=== PATIENT | female | born 1980 | race Caucasian/White ===

== ENCOUNTER 2016-04-27 06:10 | Inpatient (IN) | payer OTHER ==
[2016-04-27] VITALS (46 sets, daily range): BP systolic 79–141; BP diastolic 39–96; PULSE 63–116; RESP 16–18; TEMP 98–99.7; O2SAT 100
[2016-04-27] MEDS ORDERED: LACTATED RINGER'S 1000 ML INJ 1,000 ML IV PRN (06:54)
[2016-04-27] MEDS ORDERED: LACTATED RINGER'S 1000 ML INJ 1,000 ML IV SCH (06:54)
[2016-04-27] MEDS ORDERED: CITRIC ACID-SODIUM CITRATE LIQ 30 ML UDC PO SCH (07:00)
[2016-04-27] MEDS ORDERED: LIDOCAINE HCL 1% 50 ML VIAL I-DERMAL PRN (07:00)
[2016-04-27] MEDS ORDERED: LIDOCAINE HCL 1% 50 ML VIAL INFIL PRN (07:00)
[2016-04-27] MEDS ORDERED: OXYTOCIN 30 UNITS-500ML PREMIX 500 ML IV ONE (07:00)
[2016-04-27] MEDS ORDERED: SODIUM CHLORID 0.9% 500 ML INJ 500 ML OTHER PRN (07:00)
[2016-04-27] MEDS ORDERED: MINERAL OIL 10 ML VIAL TOPICAL PRN (07:00)
[2016-04-27] MEDS ORDERED: SODIUM CHLOR 0.9% 1000 ML INJ 1,000 ML OTHER PRN (07:14)
--- NOTE | 2016-04-27 07:17 | MH ---
cc: KESHAWN COMBS DATE OF ADMISSION: 04/27/2016 HISTORY AND PHYSICAL The patient is a 36-year-old, 2, para 1, who is now 40 weeks and one day. The patient is scheduled for induction of labor at 2 cm dilated. Multiparous patient, Group B Strep negative. The patient is aware of the risks, benefits and alternatives of induction versus observation. PAST MEDICAL HISTORY Asthma. PAST SURGICAL HISTORY She had a hip surgery in 2004. 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 MEDICATIONS None. ALLERGIES None. SOCIAL HISTORY She does not smoke, drink or use drugs. PHYSICAL EXAMINATION VITAL SIGNS: Stable and afebrile. NECK: Thyroid palpated normally. HEART: Regular rate and rhythm, without murmur or gallop. LUNGS: Clear to auscultation bilaterally. ABDOMEN: Soft, nontender, nondistended. Gravid uterus. PELVIC: Cervix 2 cm, 80% effaced, -2. LOWER EXTREMITIES: No edema. IMPRESSION AT THIS TIME 40-week intrauterine for induction of labor. The patient is aware of the risks, benefits and alternatives. The patient has signed consent. PLAN The patient will undergo induction with Pitocin and rupture of membranes. MD GEOFF Granados/KENNA /7:04 AM /7:10 AM
[2016-04-27] MEDS ORDERED: OXYTOCIN 30 UNITS-500ML PREMIX 500 ML IV SCH (08:00)
[2016-04-27 08:20] LABS: BLOOD, URINE MOD (NEG); COMMENT (UR) CULT NOT INDICATED; CULTURE IF INDICATED CULT NOT INDICATED; GLUCOSE,URINE NEG (NEG); KETONE, URINE TRACE mg/dL (NEG); MUCUS URINE FEW /lpf (OCC); NITRITE,URINE NEG (NEG); SQUAMOUS EPITHELIAL CELL URINE <1 /hpf (0-5); URINE COLOR YELLOW (YELLW/STRAW)
[2016-04-27 08:32] LABS: AUTOMATED NEUTROPHIL # 10.7 TH/MM3 (1.8-7.7); BASOPHIL % 0.3 % (0.0-2.0); EOSINOPHIL # 0.1 TH/MM3 (0-0.4); EOSINOPHIL % 0.8 % (0.0-4.0); HEMATOCRIT 33.4 % (35.0-46.0); HEMO FLAGS DIFF FINAL; LYMPH % 10.7 % (9.0-44.0); LYMPHOCYTE # 1.4 TH/MM3 (1.0-4.8); MEAN CELL VOLUME 91.4 FL (80.0-100.0); MEAN CORPUSCULAR HEMOGLOBIN 31.2 PG (27.0-34.0); MEAN CORPUSCULAR HGB CONC 34.2 % (32.0-36.0); MONO % 5.5 % (0.0-8.0); NEUT % 82.7 % (16.0-70.0); PLATELET COUNT 186 TH/MM3 (150-450); RED BLOOD COUNT 3.65 MIL/MM3 (4.00-5.30); RED CELL DISTRIBUTION WIDTH 13.8 % (11.6-17.2); WHITE BLOOD COUNT 12.9 TH/MM3 (4.0-11.0)
[2016-04-27] MEDS ORDERED: fentaNYL 2MCG-BUPIV 0.125% INJ 100 ML ONE (09:04)
[2016-04-27] MEDS ORDERED: ePHEDrine/NS 25 MG/5 ML SYR ONE (09:04)
[2016-04-27] MEDS ORDERED: AMMONIA AROMATIC INHALANT 0.33 ML ONE (11:04)
[2016-04-27 12:07] LABS: BLOOD GAS BASE EXCESS -2.2 mmol/L (-2-2); BLOOD GAS O2 HGB SATURATION 25 % (90-100); CORD BLOOD GAS HCO3 24 mmol/L (21-29); CORD BLOOD GAS PCO2 51 mmHG (34-78); CORD BLOOD GAS PH 7.28 (7.14-7.42)
[2016-04-27 12:08] LABS: CORD BLOOD GAS PO2 17 mmHG (3.0-40.0); DRAW SITE CORD BLOOD; STAT NO
--- NOTE | 2016-04-27 12:22 | PD.OB.DELI ---
Delivery Date: Apr 27, 2016 Anesthesia: Epidural Episiotomy: None Vaginal Delivery: Normal, Spontaneous Presentation: Occiput anterior Nuchal Cord: x2 Delayed cord clamping (45 sec): No Shoulder Dystocia: Suprapubic pressure given, Thea maneuver done, Wood's screw maneuver done, Other (posterior shoulder delivered) : Female, Single Infant Care: Suctioned, Responded to stimulation, Blow-by O2 delivered, Other ( bag and mask/ blood gas collected) Placenta: Spontaneous delivery, Intact, 3 vessel cord Laceration: Perineal laceration, 2 deg Repair: Chromic Leobardo Harvey MD Apr 27, 2016 12:22
[2016-04-27] MEDS ORDERED: ZOLPIDEM TARTRATE 5 MG TAB PO PRN (12:30)
[2016-04-27] MEDS ORDERED: DOCUSATE SODIUM 50 MG/SENNA 8.6 MG TAB PO PRN (12:30)
[2016-04-27] MEDS ORDERED: ONDANSETRON ODT 4 MG TAB PO PRN (12:30)
[2016-04-27] MEDS ORDERED: ALUMINUM/MAGNESIUM/SIMETH 30 ML CUP PO PRN (12:30)
[2016-04-27] MEDS ORDERED: WITCH HAZEL 50%/GLYCERIN 12.5% 40 PAD JAR TOPICAL PRN (12:30)
[2016-04-27] MEDS ORDERED: SODIUM CHLORIDE 0.9% FLUSH 5 ML FLUSH IV PRN (12:30)
[2016-04-27] MEDS ORDERED: BENZOCAINE 20% TOPICAL SPRAY 60 ML CAN TOPICAL PRN (12:30)
[2016-04-27] MEDS ORDERED: oxyCODONE/ACETAMINOPHEN 5 MG/325 MG TAB PO PRN ×2 (12:30)
[2016-04-27] MEDS ORDERED: DO NOT ADMINISTER ANTICOAGULANTS XX PRN (14:15)
[2016-04-27] MEDS ORDERED: NO SYSTEM NARCOTICS XX PRN (14:15)
[2016-04-27] MEDS ORDERED: ePHEDrine/NS 50 MG/5 ML SYR IV PRN (14:15)
[2016-04-27] MEDS ORDERED: fentaNYL 2MCG-BUPIV 0.125% INJ 100 ML EPIDURAL SCH (14:15)
[2016-04-27] MEDS: IBUPROFEN 600 MG TAB PO PRN ×2 (15:39→21:36)
[2016-04-27] MEDS ORDERED: MEASLES, MUMPS, RUBELLA VACCINE 0.5 ML VIAL SQ ONE (16:00)
[2016-04-27] MEDS ORDERED: DIPHTH/TETANUS/ACEL PERTUSSIS (BOOSTER) 0.5 ML VIAL/PFS IM ONE (16:00)
[2016-04-27] MEDS ORDERED: SODIUM CHLORIDE 0.9% FLUSH 5 ML FLUSH IV SCH (21:00)
[2016-04-27] MEDS: ACETAMINOPHEN 325 MG TAB PO PRN (21:36)
--- NOTE | 2016-04-28 06:01 | HHI.OB ---
Subjective Post Day: 1 Remarks doing well Objective Vitals/I&O Vital Signs Date Time Temp Pulse Resp B/P Pulse Ox O2 Delivery O2 Flow Rate FiO2 04/27/16 19:35 76 92/60 04/27/16 19:35 98.0 16 04/27/16 14:19 99.4 04/27/16 13:27 99.5 18 04/27/16 13:20 77 109/59 04/27/16 13:10 74 103/59 04/27/16 13:00 83 106/54 04/27/16 12:50 18 04/27/16 12:50 78 113/60 04/27/16 12:40 99.7 04/27/16 12:40 75 114/64 04/27/16 12:35 18 04/27/16 12:30 76 112/70 04/27/16 12:22 86 104/59 04/27/16 12:21 104 79/39 04/27/16 12:16 18 04/27/16 12:11 82 106/65 04/27/16 12:01 91 136/69 04/27/16 11:50 116 130/96 04/27/16 11:42 141/74 04/27/16 11:42 63 04/27/16 11:30 16 04/27/16 11:20 73 109/87 04/27/16 11:17 78 111/71 04/27/16 11:10 78 93/70 04/27/16 11:00 74 99/56 04/27/16 10:50 73 110/75 04/27/16 10:40 88 16 107/66 04/27/16 10:36 98.9 04/27/16 10:30 73 100/54 04/27/16 10:20 68 106/58 04/27/16 10:16 16 04/27/16 10:15 86 102/61 04/27/16 10:14 73 105/59 04/27/16 10:12 91 95/69 04/27/16 10:00 69 115/63 04/27/16 10:00 69 04/27/16 09:55 87 114/67 04/27/16 09:55 70 04/27/16 09:50 81 115/78 04/27/16 09:50 88 04/27/16 09:45 75 2/2/17 09:45 88 118/68 100 04/27/16 09:40 88 04/27/16 09:40 100 04/27/16 09:40 84 16 108/69 04/27/16 09:37 88 129/67 04/27/16 09:36 114 122/42 04/27/16 09:35 100 04/27/16 09:35 100 04/27/16 09:31 81 122/75 04/27/16 09:30 100 04/27/16 09:30 81 04/27/16 09:18 78 119/79 04/27/16 08:35 98.5 04/27/16 08:34 16 04/27/16 08:34 89 18 115/74 04/27/16 07:13 18 04/27/16 07:04 90 118/75 Objective Remarks GENERAL: Well-nourished, well-developed patient. ABDOMEN/GI: Abdomen soft, non-tender. Fundus: Firm, non-tender at umbilicus. GENITOURINARY: Light to moderate bleeding. EXTREMITIES: No cyanosis or edema, non-tender, without signs of DVT. Medications and IVs Current Medications Medications (Trade) Dose Ordered Sig/Ivette Route Start Time Stop Time Status Last Admin Lactated Ringer's 1,000 ml @ 125 mls/hr Q8H IV 04/27/16 06:54 04/27/16 07:17 Lactated Ringer's 1,000 ml @ 3,000 mls/hr Q20M PRN IV 04/27/16 06:54 (NS 1000 ml Inj) 1,000 ml @ 100 mls/hr Q10H PRN OTHER 04/27/16 07:14 Mineral Oil 10 ml 10 ml UNSCH PRN TOPICAL 04/27/16 07:00 (Pitocin 30 Units-NS 500 ml Premix) 500 ml @ 0 mls/hr TITRATE IV 04/27/16 08:00 04/27/16 08:32 (NS Flush) 2 ml BID IV 04/27/16 21:00 (NS Flush) 2 ml UNSCH PRN IV 04/27/16 12:30 (Tylenol) 650 mg Q4H PRN PO 04/27/16 12:30 04/27/16 21:36 (Motrin) 600 mg Q6H PRN PO 04/27/16 12:30 04/27/16 21:36 (Percocet 5-325 Mg) 1 tab Q4H PRN PO 04/27/16 12:30 (Percocet 5-325 Mg) 2 tab Q4H PRN PO 04/27/16 12:30 (Americaine 20% Top Spr) 1 spray Q4H PRN TOPICAL 04/27/16 12:30 04/27/16 14:32 (Tucks Pads) 1 applic QID PRN TOPICAL 04/27/16 12:30 04/27/16 14:32 (Noreen-Colace) 2 tab Q12H PRN PO 04/27/16 12:30 (Ambien) 5 mg HS PRN PO 04/27/16 12:30 (Mag-Al Plus Susp Liq) 15 ml Q8H PRN PO 04/27/16 12:30 (Zofran Odt) 4 mg Q6H PRN PO 04/27/16 12:30 Miscellaneous Information No systemic narcotics to be given except... UNSCH PRN XX 04/27/16 14:15 04/28/16 14:14 Miscellaneous Information DO NOT ADMINISTER ANY ANTICOAGUL... UNSCH PRN XX 04/27/16 14:15 04/28/16 14:14 (fentaNYL 2MCG-BUPIV 0.125% INJ) 100 ml @ 0 mls/hr TITRATE EPIDURAL 04/27/16 14:15 (ePHEDrine/NS 50 MG/5 ML SYR) 10 mg UNSCH PRN IV 04/27/16 14:15 04/28/16 14:14 Assessment/Plan Problem List: (1) Spontaneous vaginal delivery Discharge Planning dc home pp day #2 Leobardo Hollingsworth MD Apr 28, 2016 06:01
[2016-04-28] MEDS ORDERED: OXYC1TAB63 PO (06:03)
--- NOTE | 2016-04-28 06:03 | HHI.DCPOC ---
Discharge Care Plan Diagnosis: (1) Spontaneous vaginal delivery Report Symptoms to Your Doctor -Temperate above 100.5 degrees -Redness, of incision or excessive or foul smelling drainage -Unusual pain or calf pain -Increased vaginal bleeding -Painful or difficulty urinating -Feelings of extreme sadness or anxiety after 2 weeks Goals to Promote Your Health * To prevent worsening of your condition and complications * To maintain your health at the optimal level Directions to Meet Your Goals Take your medications as prescribed Follow your dietary instruction Follow activity as directed Ensure plenty of rest for recovery Drink fluids for hydration Keep your appointments as scheduled Take your immunizations and boosters as scheduled If your symptoms worsen call your PCP, if no PCP go to Urgent Care Center or Emergency Room Smoking is Dangerous to Your Health. Avoid second hand smoke Call the 24-hour crisis hotline for domestic abuse at Leobardo Hollingsworth MD Apr 28, 2016 06:03
--- NOTE | 2016-04-28 06:09 | HHI.DS ---
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
[2016-04-28] MEDS: ACETAMINOPHEN 325 MG TAB PO PRN ×3 (07:30→19:38)
[2016-04-28] MEDS: IBUPROFEN 600 MG TAB PO PRN ×3 (07:31→19:39)
[2016-04-28 07:55] VITALS: BP 108/65; PULSE 68; RESP 16; TEMP 97.9
[2016-04-28 19:55] VITALS: BP 109/66; PULSE 72; RESP 20; TEMP 98.6
[2016-04-29 08:18] VITALS: BP 108/67; PULSE 82; RESP 17; TEMP 98.1
--- NOTE | 2016-04-30 07:02 | MP ---
cc: KESHAWN COMBS M.D. DATE OF SURGERY: 04/27/2016 PROCEDURE Vaginal . The patient's electronic note was written and this is an addendum to that note. After the patient pushed only four times, over a short period of time she was having adequate contractions and feeling pressure with her contractions with a well-working epidural. We had everyone in the room prepared for delivery when the patient delivered the head without difficulty spontaneously. At that point a turtle sign was seen. Nuchal cord was found x2. Gentle traction was given to deliver the shoulder and the shoulder did not readily deliver. At that point the hips were brought forward and pulled back again into the Thea position and the shoulders still did not come. At this point suprapubic pressure was given, patient maternal pushing and gentle traction was applied. Without delivery of the anterior shoulder a Murguia screw maneuver was performed and continued suprapubic pressure. An episiotomy was not my necessary secondary to the patient already had a second-degree laceration. A hand was placed posterior on the 's shoulder without having to deliver the posterior arm. The infant's shoulder was pulled forward and allowed some space anteriorly. On the next push and pull along with suprapubic pressure the shoulder loosened from the suprapubic region and the was delivered. The cord was quickly clamped and cut and the infant then handed to Nursery and Respiratory in attendance. The baby quickly responded to oxygen and stimulation and Apgars were 7 and 9. Cord blood gas was collected and given to Respiratory; it was an arterial gas. At this point the second-degree episiotomy was closed after the placenta was delivered intact. The patient tolerated the procedure well. There was one minute shoulder dystocia with Murguia screw maneuver, suprapubic pressure, Thea, multiple assistants helping, and then finally a posterior shoulder. The was moving both arms well, the left was slightly less. The left was the anterior shoulder but the baby seemed to be doing well and moving both arms but not quite equally. MD GEOFF Granados/BRAULIO /12:26 PM /6:51 AM
== END 2016-04-29 12:01 | disposition home or self-care (01) | DRG 775 ==
LOC: H2EA 06:10 → H1EA 14:27
PROVIDERS: ADMIT Obstetrics & Gynecology; ATTEND Obstetrics & Gynecology
PROC: 10E0XZZ Delivery of Products of Conception, External Approach (ICD-10-PCS; principal; 2016-04-27)
PROC: 0KQM0ZZ Repair Perineum Muscle, Open Approach (ICD-10-PCS; 2016-04-27)
PROC: 3E033VJ Introduction of Other Hormone into Peripheral Vein, Percutaneous Approach (ICD-10-PCS; 2016-04-27)
PROC: 10907ZC Drainage of Amniotic Fluid, Therapeutic from Products of Conception, Via Natural or Artificial Opening (ICD-10-PCS; 2016-04-27)
DX: O41.00X0 Oligohydramnios, unspecified trimester, not applicable or unspecified (principal); J45.909 Unspecified asthma, uncomplicated; O48.0 Post-term pregnancy; O99.52 Diseases of the respiratory system complicating childbirth; O69.81X0 Labor and delivery complicated by cord around neck, without compression, not applicable or unspecified; O66.0 Obstructed labor due to shoulder dystocia; O70.1 Second degree perineal laceration during delivery; Z37.0 Single live birth; Z3A.40 40 weeks gestation of pregnancy
CPT/HCPCS: 59025; 81001; 82805; 85025; 86900; 86901; 90715; J2590; J7120